=== PATIENT | female | born 1955 | race Caucasian/White ===

== ENCOUNTER → 2022-07-16 | Outpatient (CLI) | payer MEDICARE ==
--- NOTE | 2022-07-16 15:55 | Diagnostic Imaging Report ---
INDICATION: Right knee pain AP, oblique and lateral views of right knee are obtained. 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 There is extensive osseous demineralization surrounding the knee joint. There is cortical irregularity at the proximal tibial regions just proximal to the tibial prosthesis. There does appear to be lucency surrounding the tibial prosthesis indicating bone resorption. IMPRESSION: Probable mildly impacted fractures in the proximal tibial remnant adjacent to prosthesis without other definite acute abnormality seen. Dictated by: Dictated on workstation # [id number]
--- NOTE | 2022-07-16 17:08 | Diagnostic Imaging Report ---
INDICATION: Fracture, pain. COMPARISON: Imaging from the same date. TECHNIQUE: Four radiographs of the right tibia and fibula dated 07/16/2022. FINDINGS: A left total knee arthroplasty is identified with associated intramedullary nicolas within the minimally visualized distal femur. There is cortical discontinuity and offset involving the proximal tibia at the level of the prosthesis both medially and laterally. No additional fracture or dislocation. No destructive osseous process. Diffuse osseous demineralization. No suspicious radiopaque foreign body. Soft tissue swelling about the ankle. IMPRESSION: Fracturing of the proximal tibia at the level of the tibial component of the right total knee arthroplasty. Diffuse osseous demineralization, potentially related to disuse. Soft tissue swelling about the ankle. Dictated by: Dictated on workstation # [id number]
== END ==
LOC: ORTHO 13:45
PROVIDERS: ATTEND Orthopaedic Surgery
DX: S82.201A Unspecified fracture of shaft of right tibia, initial encounter for closed fracture (principal); X58.XXXA Exposure to other specified factors, initial encounter; Z96.651 Presence of right artificial knee joint
CPT/HCPCS: 73562; 73590; G0463; 99203